=== PATIENT | male | born 1990 | race Caucasian/White ===

== ENCOUNTER 2018-03-11 23:05 | Emergency (ER) | payer OTHER, SELFPAY ==
[2018-03-11 23:05] VITALS: BP 157/92; PULSE 92; RESP 16; TEMP 36.6; O2SAT 97; BMI 17.9
--- NOTE | 2018-03-11 23:26 | ED.DCSUM_ITS ---
- ER Visit Summary Date of Service: 03/11/18 Chief Complaint: Electrical shock History of Present Illness: The patient is a 27 M with no primary care physician. He reports approximately 1 hour ago he was standing on wet carpet and picked up an extension cord with his left hand and felt a vibrating sensatio n from this. He denies any pain with it. He reports that he threw it down and was shocked for less than 5 seconds. States that it is not travel through his body. He did not have shoes on at the time. He did not fall from this. Patient reports the following this he feels as though his heart is racing. This has improved, but is still present. States that he feels nauseated as well. He is not vomited. He complains of a pressure to his forehead that is 2 out of 10 severity. Reports that he does have photophobia. He denies any bui. Physical Examination: Vitals: Stable. Afebrile. General: Well-nourished and well-developed. Head: Normocephalic atraumatic. Neck: Supple, no lymphadenopathy. No JVD. Nontender. Cardiovascular: Regular rate and rhythm. No murmurs. Respiratory: No respiratory distress. Clear to auscultation bilaterally. Abdominal: Soft, nontender, nondistended, normal bowel sounds. No guarding, rebound, or peritoneal signs. Back: Nontender. Extremities: Nontender, no edema. Skin: Normal color, no rash. Neurologic: Alert and oriented ?3. Cranial nerves II through XII are intact. Normal strength and sensation. Psych: Normal affect. Test Results: Patient refused an EKG or urinalysis. Emergency Department Course and Treatment: Patient was reassured. He is resting comfortably. He refused nausea pain medications. Treatment Plan: Patient will be discharged instructed to follow-up with Dr. Lanier as needed. Return to the emergency department for any worsening symptoms. Disposition: To home in improved and stable condition. Impression: 1. Electrical shock (120 V) left hand. This note was generated with [employer] dictation software. It may contain incorrect words, spelling, and punctuation that were not noted in review of the chart prior to signing ED Disposition - Plan for ED Patient: Disposition: Home or Assisted Living Chief Complaint: Upper Extremity Injury Instructions: ED Burn Electrical Referrals: Davey Lanier MD [NON-STAFF] - As Needed
[2018-03-11 23:29] VITALS: RESP 16
== END 2018-03-11 23:30 | disposition home or self-care (01) ==
LOC: ED 23:27
PROVIDERS: Emergency Provider Emergency Medicine
DX: T75.4XXA Electrocution, initial encounter (principal); W86.8XXA Exposure to other electric current, initial encounter; Y93.9 Activity, unspecified; Y92.89 Other specified places as the place of occurrence of the external cause; Y99.9 Unspecified external cause status
CPT/HCPCS: 99282

== ENCOUNTER → 2020-01-02 | Outpatient (CLI) | payer OTHER, SELFPAY ==
[2020-01-02 07:14] LABS: Absolute Lymphocyte Count 2.61 X10^3/uL (0.83-4.51); Absolute Neutrophil Count 2.4 X10^3/uL (2.0-7.7); Basophil# 0.01 X10^3/uL; Basophil% 0.2 % (0-1); Eosinophil# 0.07 X10^3/uL; Eosinophils% 1.2 % (0-5); Lymphocyte # 2.61 X10^3/ul (4.0); Lymphocyte % 46.3 % (19-41); Mean Corp Hgb Conc 34.8 g/dL (32-36); Mean Corpuscular Hgb 31.2 pg (27.0-32.0); Mean Corpuscular Volume 89.7 fL (80-94); Mean Platelet Vol. 10.5 fl (6.2-12.0); Monocyte# 0.57 X10^3/uL; Monocyte% 10.1 % (0-10); NRBC Flagged by Analyzer 0 % (0-5); Neutrophil # 2.38 X10^3/uL (2.7-7.7); Neutrophil % 42.2 % (47-70); Platelet Count 189 K/mm3 (150-450); RBC Distribution Width CV 12.3 % (11.6-14.6); RBC Distribution Width SD 40.4 fl (35.1-43.9); Red Blood Count 5.13 M/mm3 (4.6-6.2); White Blood Count 5.6 K/mm3 (4.4-11.0)
[2020-01-02 07:46] LABS: ALB/GLOB Ratio 1.3 RATIO (0.9-2.4); AST(SGOT) 17 U/L (15-37); Alanine Aminotransfer ALT/SGPT 19 U/L (16-61); Albumin, Serum 4.5 g/dL (3.2-5.0); Alkaline Phosphatase 90 U/L (45-117); Amylase 68 U/L (25-115); Anion Gap 5 (5-15); BUN 23 mg/dL (7-18); BUN/Creat Ratio 24.8 RATIO (10-20); Bilirubin, Direct 0.39 mg/dL (0.00-0.30); Chloride 106 mmol/L (98-107); Creatinine, Serum 0.93 mg/dL (0.70-1.30); EST Glomerular Filtration Rate 103 mL/min (>60); Est Glom Filt Rate - Afr Amer 124 mL/min (>60); Globulin 3.4 g/dL (2.2-4.2); Glucose 86 mg/dL (74-106); Lipase 142 U/L (73-393); Potassium 3.9 mmol/L (3.5-5.1); Protein, Total 7.9 g/dL (6.4-8.2); Sodium Level 140 mmol/L (136-145)
== END | disposition home or self-care (01) ==
PROVIDERS: PCP Family Medicine
DX: R10.9 Unspecified abdominal pain (principal); R19.7 Diarrhea, unspecified
CPT/HCPCS: 36415; 80053; 82150; 82248; 83690; 85025

== ENCOUNTER → 2020-01-07 | Outpatient (CLI) | payer OTHER, SELFPAY ==
[2020-01-07 19:39] LABS: Amylase 70 U/L (25-115); Bilirubin, Direct 0.31 mg/dL (0.00-0.30); Cholesterol 152 mg/dL (200); High Density Lipoprotein 62 mg/dL; Lipase 136 U/L (73-393); Triglycerides 60 mg/dL; Very Low Density Lipoprotein 12 mg/dL (5-40)
[2020-01-09 05:35] LABS: Haptoglobin 95 mg/dL (17-317)
== END | disposition home or self-care (01) ==
LOC: LAB 16:33
PROVIDERS: PCP Family Medicine
DX: Z00.00 Encounter for general adult medical examination without abnormal findings (principal); E80.6 Other disorders of bilirubin metabolism; R10.9 Unspecified abdominal pain
CPT/HCPCS: 36415; 80061; 82150; 82247; 82248; 83010; 83690

== ENCOUNTER 2020-01-09 16:27 | Emergency (ER) | payer OTHER, SELFPAY ==
[2020-01-09 16:28] VITALS: BP 149/106; PULSE 107; RESP 18; TEMP 36.5; O2SAT 97; BMI 17.2
--- NOTE | 2020-01-09 18:05 | CT_ITS ---
STUDY: CT ABDOMEN AND PELVIS WITH CONTRAST REASON FOR EXAM: Male, 29 years old. Elevated bilirubin. Weight loss. Abdominal pain for 6 months. RADIATION DOSAGE (If Supplied By Facility): CTDIvol = ( 7.49 ) mGy, DLP = ( 256.29 ) mGycm TECHNIQUE: Transaxial images were obtained from the dome of the diaphragm to the symphysis pubis without oral contrast. 100 CC ISOVUE 300 was administered. Sagittal and coronal images were reconstructed. Individualized dose optimization techniques were used for this CT. COMPARISON: None. FINDINGS: The visualized lung bases are unremarkable. The visualized portions of the heart are within normal limits. Normal liver. Normal gallbladder and extrahepatic biliary system. Normal spleen. Normal pancreas. Normal bilateral adrenal glands. Normal right kidney. Normal left kidney. Normal visualized stomach. Normal small intestine. Normal colon. The appendix is visualized and appears normal. Normal abdominal aorta. Normal inferior vena cava. Normal retroperitoneum. Normal urinary bladder. Normal prostate. There is no pelvic lymphadenopathy. No free air or free fluid is seen within the peritoneal cavity. Normal abdominal wall. Normal osseous structures. CT/Abdomen/Pelvis W IV Cont ONLY IMPRESSION: Normal enhanced CT of the abdomen and pelvis. Electronically Signed: Jaswinder Coronado DO at 18:37 EDT Tel [phone], Service support ,
--- NOTE | 2020-01-09 18:06 | ED.DCSUM_ITS ---
History of Present Illness Chief Complaint: Abd Pain Informant: Patient Onset: Month(s) Context: Gradual Onset Timing: Intermittent Narrative: Patient is a 29-year-old male with no significant past medical history presen ting with months of intermittent abdominal pain. Patient dates the pain is mostly in his right upper quadrant but sometimes on the left side. It seems be worse with food. He has been following with his primary care doctor, Dr. Davey Lanier, who is been doing outpatient blood work. His bilirubin was shown to be elevated so he was sent to the emergency room for further evaluation. Patient has has had night sweats and about a 20 pound weight loss over the past few months he has not been eating. States eating does tend to make his symptoms worse. Initially thought he might have IBS and he tried a bland diet with chicken rice with no change in his symptoms. Patient has any fevers. He has appointment to see GI on February 07, Dr. Sawyer. Patient has associated nausea or vomiting he does have diarrhea. He states his stool is often loose and orange in color. Denies any black or bloody stools. He notes he does have a maternal aunt with a history of Crohn's disease. No other complaints at this time. Patient currently does not have any abdominal pain. Past Medical History - Allergies and Home Meds Allergies/Adverse Reactions: Allergies No Known Allergies Allergy (Verified 01/09/20 16:27) Primary Care Physician: Davey Lanier MD [Primary Care Provider] - Past Medical History: None Surgical History: no surgical history, noncontributory Smoking Status: Never smoker Alcohol: None Drugs: None Review of Systems General: Reports: Sweats, Weight loss. Denies: Chills, Fever Eyes: Denies: Visual changes - bilaterally, Diplopia ENT: Denies: Rhinorrhea, Sore throat Cardiovascular: Denies: Chest pain, Palpitations Respiratory: Denies: Dyspnea, Cough, Dyspnea on exertion Gastrointestinal: Reports: Abdominal pain, Diarrhea. Denies: Nausea, Vomiting, Melena, Hematochezia Genitourinary: Denies: Dysuria, Hematuria, Frequency Musculoskeletal: Denies: Back pain, Extremity Pain Skin: Denies: Rash, Wounds Neurological: Denies: Headache, Weakness, Numbness Physical Exam Vital Signs/Narrative: Vital Signs Temp Pulse Resp BP Pulse Ox 01/09/20 16:28 97.7 F L 107 H 18 149/106 H 97 Inital Vital Signs reviewed: Yes General: Well nourished, Well developed, No Acute Distress, - - Thin male Head: Normocephalic, Atraumatic Eyes: Perrl, EOMI ENT: Moist mucous membranes, No rhinorrhea Neck: Supple, Nontender Cardiovascular: Regular rate, Regular rhythm, No murmurs Respiratory: No distress, CTA bilaterally, Chest nontender Abdomen: Soft, Nondistended, Normal bowel sounds, Tender, Iyer's sign. Negative for: Guarding, Rebound tenderness, Hepatomegaly, Splenomegaly, Mass Back: Nontender, Normal Inspection. Negative for: CVA tenderness Extremities: Nontender, No edema Skin: Normal color, No rash Neurological: Alert, Oriented x3, Cranial nerves II-XII grossly intact, Normal Strength, Normal Sensation Psychological: Normal affect, Normal Mood Diagnostic/Tx/Re-eval Clinical Impression(s) from Imaging Studies Abdomen/Pelvis CT 01/09/20 18:05 IMPRESSION: Normal enhanced CT of the abdomen and pelvis. Electronically Signed: Jaswinder Coronado DO at 18:37 EDT Tel [phone], Service support , Abdomen Ultrasound 01/09/20 18:40 IMPRESSION: Normal right upper quadrant ultrasound examination. Electronically Signed: Jaswinder Coronado DO at 19:42 EDT Tel [phone], Service support , Laboratory Data 01/09/20 01/09/20 01/09/20 18:40 18:40 18:50 WBC 3.4 L RBC 4.69 Hgb 14.8 Hct 42.6 MCV 90.8 MCH 31.6 MCHC 34.7 RDW Std Deviation 40.5 RDW Coeff of Cheryl 12.4 Plt Count 159 MPV 10.5 Immature Gran % (Auto) 0.300 Neut % (Auto) 58.1 Lymph % (Auto) 29.9 [place] % (Auto) 10.8 H Eos % (Auto) 0.6 Baso % (Auto) 0.3 Absolute Neuts (auto) 2.0 Absolute Lymphs (auto) 1.03 Nucleated RBC % 0 Sodium 138 Potassium 4.3 Chloride 107 Carbon Dioxide 29.0 Anion Gap 2 L BUN 14 Creatinine 0.88 Estim Creat Clear Calc 92.50 Est GFR (MDRD) Af Amer 132 Est GFR (MDRD) Non-Af 109 BUN/Creatinine Ratio 15.9 Glucose 80 Calcium 8.7 Total Bilirubin 2.90 H Direct Bilirubin 0.31 H AST 12 L ALT 15 L Alkaline Phosphatase 73 Total Protein 7.0 Albumin 4.0 Globulin 3.0 Lipase 96 Urine Color Urine Clarity Urine pH Ur Specific [place] Urine Protein Urine Glucose (UA) Urine Ketones Urine Occult Blood Urine Nitrite Urine Bilirubin Urine Urobilinogen Ur Leukocyte Esterase Urine RBC Urine WBC Ur Squamous Epith Cells Urine Bacteria Urine Mucus Monoscreen Negative 01/09/20 19:50 WBC RBC Hgb Hct MCV MCH MCHC RDW Std Deviation RDW Coeff of Cheryl Plt Count MPV Immature Gran % (Auto) Neut % (Auto) Lymph % (Auto) [place] % (Auto) Eos % (Auto) Baso % (Auto) Absolute Neuts (auto) Absolute Lymphs (auto) Nucleated RBC % Sodium Potassium Chloride Carbon Dioxide Anion Gap BUN Creatinine Estim Creat Clear Calc Est GFR (MDRD) Af Amer Est GFR (MDRD) Non-Af BUN/Creatinine Ratio Glucose Calcium Total Bilirubin Direct Bilirubin AST ALT Alkaline Phosphatase Total Protein Albumin Globulin Lipase Urine Color Yellow Urine Clarity Clear Urine pH 6.5 Ur Specific [place] 1.010 Urine Protein Negative Urine Glucose (UA) Normal Urine Ketones Negative Urine Occult Blood Negative Urine Nitrite Negative Urine Bilirubin Negative Urine Urobilinogen Normal Ur Leukocyte Esterase Negative Urine RBC 0 SEEN Urine WBC 0 SEEN Ur Squamous Epith Cells 0 SEEN Urine Bacteria 0 SEEN Urine Mucus 0 SEEN Monoscreen - Medical Decision Making Patient is evaluated for elevated bilirubin outpatient labs in conjunction with abdominal pain for the past few months. Sickle exam is quite benign and he does not have an obvious localized source of his pain.Patient's bilirubin was 2.81- week ago and then 3.42 days ago. It is rechecked today and is now 2.9. He is not having associated transaminitis. His other lab work is all grossly normal. I did check a Monospot which is negative. Patient does have a mild leukopenia with monocyte predominance. CT the abdomen pelvis does not show any acute abdominal process including a mass. Ultrasound of the gallbladder does not show any obstructive process or findings consistent with acute cholecystitis. His common bile duct is normal diameter. The exact cause of his symptoms is not clear however think he is stable to continue outpatient follow-up. He has an appointment to see GI in 1 month. I did discuss the case with his PCP who is agreeable with this plan. Patient is counseled on signs and symptoms requiring return to the emergency room. Patient verbalizes agreement and understand this plan. Patient discharged home in stable and improved condition. ED Disposition - Plan for ED Patient: Disposition: Home or Assisted Living Diagnosis: Abdominal pain of unknown cause, Elevated bilirubin Instructions: ED Unknown Causes of Abdominal Pain Male Referrals: Davey Lanier MD [Primary Care Provider] - Additional Instructions: Please continue to follow-up with your GI doctor as scheduled. Did not find any abnormalities today. Your bilirubin level is going back down. Please follow-up with your primary care doctor in the next week for repeat evaluation.
[2020-01-09] MEDS: 0.9% Normal Saline 1,000 ML 1000 ML IV (18:26)
--- NOTE | 2020-01-09 18:40 | US_ITS ---
STUDY: ABDOMINAL ULTRASOUND - RIGHT UPPER QUADRANT REASON FOR VISIT: Male, 29 years old. Right upper quadrant pain. TECHNIQUE: Ultrasound evaluation of the right upper quadrant was performed with real-time and static emanuel-scale imaging. TECHNICAL QUALITY: Adequate. COMPARISON: CT of the abdomen and pelvis, 01/09/2020. FINDINGS: Liver: The liver measures 12.9 cm. There is normal echogenicity of the liver. The bile ducts are within normal limits. There is hepatic color flow. The direction of portal flow is hepatopetal. There is no demonstrated mass lesion. Gallbladder: Normal distended gallbladder. The gallbladder wall measures 1.2 mm. There is a negative sonographic Iyer''s sign. There is no pericholecystic fluid. There are no gallstones. Common Bile Duct (C.B.D.): The common bile duct measures 3 mm. Pancreas: Normal size of the head, body and tail of the pancreas. There is normal echogenicity of the pancreas. There is no demonstrated pancreatic mass or cyst. Right Kidney: Normal size of the right kidney. The right kidney measures 11.0 cm. Normal renal cortex. The right cortex measures 1.7 cm. There is no demonstrated renal mass or cyst. There is no right hydronephrosis. US/Abdomen Limited IMPRESSION: Normal right upper quadrant ultrasound examination. Electronically Signed: Jaswinder Coronado DO at 19:42 EDT Tel [phone], Service support ,
[2020-01-09 18:52] VITALS: RESP 18
[2020-01-09 19:14] LABS: AST(SGOT) 12 U/L (15-37); Alanine Aminotransfer ALT/SGPT 15 U/L (16-61); Alkaline Phosphatase 73 U/L (45-117); Anion Gap 2 (5-15); BUN 14 mg/dL (7-18); BUN/Creat Ratio 15.9 RATIO (10-20); Bilirubin, Direct 0.31 mg/dL (0.00-0.30); Calcium,Total 8.7 mg/dL (8.5-10.1); Chloride 107 mmol/L (98-107); Creatinine, Serum 0.88 mg/dL (0.70-1.30); EST Glomerular Filtration Rate 109 mL/min (>60); Est Glom Filt Rate - Afr Amer 132 mL/min (>60); Glucose 80 mg/dL (74-106); Lipase 96 U/L (73-393); Potassium 4.3 mmol/L (3.5-5.1); Sodium Level 138 mmol/L (136-145)
[2020-01-09 19:14] LABS: Absolute Lymphocyte Count 1.03 X10^3/uL (0.83-4.51); Basophil# 0.01 X10^3/uL; Basophil% 0.3 % (0-1); Eosinophil# 0.02 X10^3/uL; Eosinophils% 0.6 % (0-5); Hematocrit 42.6 % (40-54); Hemoglobin 14.8 g/dL (13.0-16.5); Lymphocyte # 1.03 X10^3/ul (4.0); Lymphocyte % 29.9 % (19-41); Mean Corp Hgb Conc 34.7 g/dL (32-36); Mean Corpuscular Hgb 31.6 pg (27.0-32.0); Mean Corpuscular Volume 90.8 fL (80-94); Mean Platelet Vol. 10.5 fl (6.2-12.0); Monocyte# 0.37 X10^3/uL; Monocyte% 10.8 % (0-10); NRBC Flagged by Analyzer 0 % (0-5); Neutrophil % 58.1 % (47-70); Platelet Count 159 K/mm3 (150-450); RBC Distribution Width CV 12.4 % (11.6-14.6); RBC Distribution Width SD 40.5 fl (35.1-43.9); Red Blood Count 4.69 M/mm3 (4.6-6.2); White Blood Count 3.4 K/mm3 (4.4-11.0)
[2020-01-09 19:15] LABS: Internal QC Validated? YES +Cl - CLEAR BKGD; Monotest Negative (Negative)
[2020-01-09 19:53] VITALS: BP 132/87; PULSE 64; RESP 16; O2SAT 99
[2020-01-09 19:54] LABS: Bacteria 0 SEEN /hpf (None Seen); Mucous, Urine 0 SEEN /hpf (<or=2+); Red Blood Cells-Urine 0 SEEN /hpf (0-5); Squamous Epithelial Cells - UA 0 SEEN /hpf (0-5); White Blood Cells 0 SEEN /hpf (0-5)
[2020-01-09 20:26] LABS: Color, Urine Yellow (Yellow); Glucose, Dipstick Normal (Normal); Ketone-Dipstick Negative (Negative); Leukocyte Esterase-Dipstick Negative /ul (Negative); Nitrite-Dipstick Negative (Negative); Occult Blood-Urine Negative /ul (Negative); Protein-Dipstick Negative (Negative); Urine Bilirubin Dipstick Negative (Negative); Urine Clarity Clear (Clear); Urine Urobilinogen Normal (Normal); Urine pH 6.5 (5.0 - 8.0)
== END 2020-01-09 20:42 | disposition home or self-care (01) ==
PROVIDERS: Emergency Provider Emergency Medicine; PCP Family Medicine
DX: R10.11 Right upper quadrant pain (principal); R79.89 Other specified abnormal findings of blood chemistry
CPT/HCPCS: 74177; 76705; 80048; 80076; 81001; 83690; 85025; 86308; 96360; 99284; J7030; Q9967; A4216

== ENCOUNTER → 2025-03-13 | Outpatient (CLI) | payer OTHER, SELFPAY ==
--- OUTSIDE RECORDS SUMMARY | 2025-03-13 11:06 | XMS RPT_ITS | CCD ---
Author Organization [place] [facility] URGENT CARE TECHNICIAN [facility] Results Test Name Value Interpretation Reference Range Facil ity Abdomen Limitedon 01-09-2020 Abdomen Limited [facility] Imaging Services [address] [place] [address] Abdomen Limited MR#: [id number] Acct: [id number] Name: TROYUVALDO ANN Rep #: [id number] : 1990 M 29 From: Jaswinder Coronado DO PCP: Dr. Davey Lanier MD Status: REG ER Study: Abdomen Limited Date of Exam: 01/09/20 Exam# [id number] Ordering Dr: Ivy Lazcnao DO STUDY: ABDOMINAL ULTRASOUND - RIGHT UPPER QUADRANT REASON FOR VISIT: Male, 29 years old. Right upper quadrant pain. TECHNIQUE: Ultrasound evaluation of the right upper quadrant was performed with real-time and static emanuel-scale imaging. TECHNICAL QUALITY: Adequate. COMPARISON: CT of the abdomen and pelvis, 01/09/2020. FINDINGS: Liver: The liver measures 12.9 cm. There is normal echogenicity of the liver. The bile ducts are within normal limits. There is hepatic color flow. The direction of portal flow is hepatopetal. There is no demonstrated mass lesion. Gallbladder: Normal distended gallbladder. The gallbladder wall measures 1.2 mm. There is a negative sonographic Iyer''s sign. There is no pericholecystic fluid. There are no gallstones. Common Bile Duct (C.B.D.): The common bile duct measures 3 mm. Pancreas: Normal size of the head, body and tail of the pancreas. There is normal echogenicity of the pancreas. There is no demonstrated pancreatic mass or cyst. Right Kidney: Normal size of the right kidney. The right kidney measures 11.0 cm. Normal renal cortex. The right cortex measures 1.7 cm. There is no demonstrated renal mass or cyst. There is no right hydronephrosis. US/Abdomen Limited IMPRESSION: Normal right upper quadrant ultrasound examination. Electronically Signed: Jaswinder Coronado DO at 19:42 EDT Tel [phone], Service support , CC: Dr. Ivy Lazcano DO; Dr. Davey Lanier MD [employer]: Signed Normal [facility] Abdomen/Pelvis W IV Cont ONL Yo 01-09-2020 Abdomen/Pelvis W IV Cont ONLY [facility] Imaging Services [address] [place] [address] Abdomen/Pelvis W IV Cont ONLY MR#: [id number] Acct: [id number] Name: UVALDO SIMMONS Rep #: [id number] : 1990 M 29 From: aJswinder Coronado DO PCP: Dr. Davey Lanier MD Status: REG ER Study: Abdomen/Pelvis W IV Cont ONLY Date of Exam: Exam# [id number] Ordering Dr: Ivy Lazcano DO STUDY: CT ABDOMEN AND PELVIS WITH CONTRAST REASON FOR EXAM: Male, 29 years old. Elevated bilirubin. Weight loss. Abdominal pain for 6 months. RADIATION DOSAGE (If Supplied By Facility): CTDIvol = ( 7.49 ) mGy, DLP = ( 256.29 ) mGycm TECHNIQUE: Transaxial images were obtained from the dome of the diaphragm to the symphysis pubis without oral contrast. 100 CC ISOVUE 300 was administered. Sagittal and coronal images were reconstructed. Individualized dose optimization techniques were used for this CT. COMPARISON: None. FINDINGS: The visualized lung bases are unremarkable. The visualized portions of the heart are within normal limits. Normal liver. Normal gallbladder and extrahepatic biliary system. Normal spleen. Normal pancreas. Normal bilateral adrenal glands. Normal right kidney. Normal left kidney. Normal visualized stomach. Normal small intestine. Normal colon. The appendix is visualized and appears normal. Normal abdominal aorta. Normal inferior vena cava. Normal retroperitoneum. Normal urinary bladder. Normal prostate. There is no pelvic lymphadenopathy. No free air or free fluid is seen within the peritoneal cavity. Normal abdominal wall. Normal osseous structures. CT/Abdomen/Pelvis W IV Cont ONLY IMPRESSION: Normal enhanced CT of the abdomen and pelvis. Electronically Signed: Jaswinder Coronado DO at 18:37 EDT Tel [phone], Service support , CC: Dr. Ivy Lazcano DO; Dr. Davey Lanier MD [place] [employer]ulator: Signed Normal [facility] Basic Metabolic Profile (BMP )on 01-09-2020 Calcium [Mass/Vol] 8.7 mg/dL Normal 8.5-10.1 [facility] Comment on above: Performed By: #### L 500.4050, L501.2400, L501.2450, L501.4700 #### [facility] [address] [place], [address] Chloride [Moles/Vol] 107 mmol/L Normal 98-107 [facility] Comment on above: Performed By: #### L 500.4050, L501.2400, L501.2450, L501.4700 #### [facility] [address] [place], [address] CO2 [Moles/Vol] 29.0 mmol/L Normal 21.0-32.0 [facility] Comment on above: Performed By: #### L 500.4050, L501.2400, L501.2450, L501.4700 #### [facility] [address] [place], [address] Creatinine [Mass/Vol] 0.88 mg/dL Normal 0.70-1.30 [facility] Comment on above: Result Comment: The validity of the calculated GFR AND GFRAA in patients over 70 years has not been determined. Clinical correlation is essential. Performed By: #### L 500.4050, L501.2400, L501.2450, L501.4700 #### [facility] [address] [place], [address] EST GFR - AA 132 mL/min Normal >60 [facility] Comment on above: Result Comment: Afri can Egyptian GFR Calc Performed By: #### L 500.4050, L501.2400, L501.2450, L501.4700 #### [facility] [address] [place], [address] Estimated CRCL 92.50 ml/min Normal [facility] Comment on above: Performed By: #### L 500.4050, L501.2400, L501.2450, L501.4700 #### [facility] [address] [place], [address] GAP 2 Low 5-15 [facility] Comment on above: Performed By: #### L 500.4050, L501.2400, L501.2450, L501.4700 #### [facility] [address] [place], [address] GFR/1.73 sq M predicted among non-blacks MDRD (S/P/Bld) [Vol rate/Area] 109 mL/min/{1.73_m2} Normal >60 [facility] Comment on above: Result Comment: Non- GFR Calc Performed By: #### L 500.4050, L501.2400, L501.2450, L501.4700 #### [facility] [address] [place], [address] Glucose [Mass/Vol] 80 mg/dL Normal 74-106 [facility] Comment on above: Result Comment: Oscar hilliard note revised GLUCOSE reference range effective 2017. Performed By: #### L 500.4050, L501.2400, L501.2450, L501.4700 #### [facility] [address] [place], [address] Potassium [Moles/Vol] 4.3 mmol/L Normal 3.5-5.1 [facility] Comment on above: Performed By: #### L 500.4050, L501.2400, L501.2450, L501.4700 #### [facility] [address] [place], [address] Sodium [Moles/Vol] 138 mmol/L Normal 136-145 [facility] Comment on above: Performed By: #### L 500.4050, L501.2400, L501.2450, L501.4700 #### [facility] [address] [place], [address] Urea nitrogen [Mass/Vol] 15.9 RATIO Normal 10-20 [facility] Comment on above: Performed By: #### L 500.4050, L501.2400, L501.2450, L501.4700 #### [facility] [address] [place], [address] Urea nitrogen [Mass/Vol] 14 mg/dL Normal 7-18 [facility] Comment on above: Performed By: #### L 500.4050, L501.2400, L501.2450, L501.4700 #### [facility] [address] [place], [address] CBC W/Diff, Automatedon 09-04 30-2019 Absolute Neut 2.0 X10 3/uL Normal 2.0-7.7 [facility] Comment on above: Performed By: #### L 500.4050, L501.2400, L501.2450, L501.4700 #### [facility] [address] [place], [address] Basophils/100 WBC (Bld) 0.3 % Normal 0-1 [facility] Comment on above: Performed By: #### L 500.4050, L501.2400, L501.2450, L501.4700 #### [facility] [address] [place], [address] Eosinophils/100 WBC (Bld) 0.6 % Normal 0-5 [facility] Comment on above: Performed By: #### L 500.4050, L501.2400, L501.2450, L501.4700 #### [facility] [address] [place], [address] Erythrocyte distribution width (RBC) [Ratio] 12.4 % Normal 11.6-14.6 [facility] Comment on above: Performed By: #### L 500.4050, L501.2400, L501.2450, L501.4700 #### [facility] [address] [place], [address] Hematocrit (Bld) [Volume fraction] 42.6 % Normal 40-54 [facility] Comment on above: Performed By: #### L 500.4050, L501.2400, L501.2450, L501.4700 #### [facility] [address] [place], [address] Hemoglobin (Bld) [Mass/Vol] 14.8 g/dL Normal 13.0-16.5 [facility] Comment on above: Performed By: #### L 500.4050, L501.2400, L501.2450, L501.4700 #### [facility] [address] [place], [address] IM GRAN % 0.300 % Normal 0.0-0.9 [facility] Comment on above: Result Comment: IG% - Immature Granulocytes (promyelocytes, myelocytes and metamyelocytes) > 1% indicates that a LEFT SHIFT is Present. Performed By: #### L 500.4050, L501.2400, L501.2450, L501.4700 #### [facility] [address] [place], [address] Lymphocytes (Bld) [#/Vol] 1.03 X10 3/uL Normal 0.83-4.51 [facility] Comment on above: Performed By: #### L 500.4050, L501.2400, L501.2450, L501.4700 #### [facility] [address] [place], [address] Lymphocytes/100 WBC (Bld) 29.9 % Normal 19-41 [facility] Comment on above: Performed By: #### L 500.4050, L501.2400, L501.2450, L501.4700 #### [facility] [address] [place], [address] MCH (RBC) [Entitic mass] 31.6 pg Normal 27.0-32.0 [facility] Comment on above: Performed By: #### L 500.4050, L501.2400, L501.2450, L501.4700 #### [facility] [address] [place], [address] MCHC (RBC) [Mass/Vol] 34.7 g/dL Normal 32-36 [facility] Comment on above: Performed By: #### L 500.4050, L501.2400, L501.2450, L501.4700 #### [facility] [address] [place], [address] MCV (RBC) [Entitic vol] 90.8 fL Normal 80-94 [facility] Comment on above: Performed By: #### L 500.4050, L501.2400, L501.2450, L501.4700 #### [facility] [address] [place], [address] Monocytes/100 WBC (Bld) 10.8 % High 0-10 [facility] Comment on above: Performed By: #### L 500.4050, L501.2400, L501.2450, L501.4700 #### [facility] [address] [place], [address] Neutrophils/100 WBC (Bld) 58.1 % Normal 47-70 [facility] Comment on above: Performed By: #### L 500.4050, L501.2400, L501.2450, L501.4700 #### [facility] [address] [place], [address] NRBC, FLAGGED 0 % Normal 0-5 [facility] Comment on above: Performed By: #### L 500.4050, L501.2400, L501.2450, L501.4700 #### [facility] [address] [place], [address] Platelet mean volume (Bld) [Entitic vol] 10.5 fL Normal 6.2-12.0 [facility] Comment on above: Performed By: #### L 500.4050, L501.2400, L501.2450, L501.4700 #### [facility] [address] [place], [address] Platelets (Bld) [#/Vol] 159 10*3/uL Normal 150-450 [facility] Comment on above: Performed By: #### L 500.4050, L501.2400, L501.2450, L501.4700 #### [facility] [address] [place], [address] RBC (Bld) [#/Vol] 4.69 M/mm3 Normal 4.6-6.2 [facility] Comment on above: Performed By: #### L 500.4050, L501.2400, L501.2450, L501.4700 #### [facility] [address] [place], [address] RDW SD 40.5 fl Normal 35.1-43.9 [facility] Comment on above: Performed By: #### L 500.4050, L501.2400, L501.2450, L501.4700 #### [facility] [address] [place], [address] WBC (Bld) [#/Vol] 3.4 10*3/uL Low 4.4-11.0 [facility] Comment on above: Performed By: #### L 500.4050, L501.2400, L501.2450, L501.4700 #### [facility] [address] [place], [address] Emergency Department Summary on 01-09-2020 Emergency Department Summary [facility] Medical Records Department [address] [facility] [place] [address] Emergency Department Summary 01/09/20 MR#: [id number] Acct: [id number] Name: UVALDO SIMMONS Rep #: [id number] : 1990 29 From: Ivy Lazcano DO PCP: Dr. Davey Lanier MD Status:DEP ER History of Present Illness Chief Complaint: Abd Pain Informant: Patient Onset: Month(s) Context: Gradual Onset Timing: Intermittent Narrative: Patient is a 29-year-old male with no significant past medical history presenting with months of intermittent abdominal pain. Patient dates the pain is mostly in his right upper quadrant but sometimes on the left side. It seems be worse with food. He has been following with his primary care doctor, Dr. Davey Lanier, who is been doing outpatient blood work. His bilirubin was shown to be elevated so he was sent to the emergency room for further evaluation. Patient has has had night sweats and about a 20 pound weight loss over the past few months he has not been eating. States eating does tend to make his symptoms worse. Initially thought he might have IBS and he tried a bland diet with chicken rice with no change in his symptoms. Patient has any fevers. He has appointment to see GI on February 07, Dr. Sawyer. Patient has associated nausea or vomiting he does have diarrhea. He states his stool is often loose and orange in color. Denies any black or bloody stools. He notes he does have a maternal aunt with a history of Crohn's disease. No other complaints at this time. Patient currently does not have any abdominal pain. Past Medical History - Allergies and Home Meds Allergies/Adverse Reactions: Allergies No Known Allergies Allergy (Verified 01/09/20 16:27) Primary Care Physician: Davey Lanier MD [Primary Care Provider] - Past Medical History: None Surgical History: no surgical history, noncontributory Smoking Status: Never smoker Alcohol: None Drugs: None Review of Systems General: Reports: Sweats, Weight loss. Denies: Chills, Fever Eyes: Denies: Visual changes - bilaterally, Diplopia ENT: Denies: Rhinorrhea, Sore throat Cardiovascular: Denies: Chest pain, Palpitations Respiratory: Denies: Dyspnea, Cough, Dyspnea on exertion Gastrointestinal: Reports: Abdominal pain, Diarrhea. Denies: Nausea, Vomiting, Melena, Hematochezia Genitourinary: Denies: Dysuria, Hematuria, Frequency Musculoskeletal: Denies: Back pain, Extremity Pain Skin: Denies: Rash, Wounds Neurological: Denies: Headache, Weakness, Numbness Physical Exam Vital Signs/Narrative: Vital Signs Temp Pulse Resp BP Pulse Ox 01/09/20 16:28 97.7 F L 107 H 18 149/106 H 97 Inital Vital Signs reviewed: Yes General: Well nourished, Well developed, No Acute Distress, - - Thin male Head: Normocephalic, Atraumatic Eyes: Perrl, EOMI ENT: Moist mucous membranes, No rhinorrhea Neck: Supple, Nontender Cardiovascular: Regular rate, Regular rhythm, No murmurs Respiratory: No distress, CTA bilaterally, Chest nontender Abdomen: Soft, Nondistended, Normal bowel sounds, Tender, Iyer's sign. Negative for: Guarding, Rebound tenderness, Hepatomegaly, Splenomegaly, Mass Back: Nontender, Normal Inspection. Negative for: CVA tenderness Extremities: Nontender, No edema Skin: Normal color, No rash Neurological: Alert, Oriented x3, Cranial nerves II-XII grossly intact, Normal Strength, Normal Sensation Psychological: Normal affect, Normal Mood Diagnostic/Tx/Re-eval Clinical Impression(s) from Imaging Studies Abdomen/Pelvis CT 01/09/20 18:05 IMPRESSION: Normal enhanced CT of the abdomen and pelvis. Electronically Signed: Jaswinder Coronado DO at 18:37 EDT Tel [phone], Service support , Abdomen Ultrasound 01/09/20 18:40 IMPRESSION: Normal right upper quadrant ultrasound examination. Electronically Signed: Jaswinder Coronado at 19:42 EDT Tel [phone], Service support , Laboratory Data 01/09/20 01/09/20 01/09/20 18:40 18:40 18:50 WBC 3.4 L RBC 4.69 Hgb 14.8 Hct 42.6 MCV 90.8 MCH 31.6 MCHC 34.7 RDW Std Deviation 40.5 RDW Coeff of Cheryl 12.4 Plt Count 159 MPV 10.5 Immature Gran % (Auto) 0.300 Neut % (Auto) 58.1 Lymph % (Auto) 29.9 [place] % (Auto) 10.8 H Eos % (Auto) 0.6 Baso % (Auto) 0.3 Absolute Neuts (auto) 2.0 Absolute Lymphs (auto) 1.03 Nucleated RBC % 0 Sodium 138 Potassium 4.3 Chloride 107 Carbon Dioxide 29.0 Anion Gap 2 L BUN 14 Creatinine 0.88 Estim Creat Clear Calc 92.50 Est GFR (MDRD) Af Amer 132 Est GFR (MDRD) Non-Af 109 BUN/Creatinine Ratio 15.9 Glucose 80 Calcium 8.7 Total Bilirubin 2.90 H Direct Bilirubin 0.31 H AST 12 L ALT 15 L Alkaline Phosphatase 73 Total Protein 7.0 Albumin 4.0 Globulin 3.0 Lipase 96 Urine Color Urine Clarity Urine pH Ur Specific Merritt Urine Protein Urine Glucose (UA) Urine Ketones Urine Occult Blood Urine Nitrite Urine Bilirubin Urine Urobilinogen Ur Leukocyte Esterase Urine RBC Urine WBC Ur Squamous Epith Cells Urine Bacteria Urine Mucus Monoscreen Negative 01/09/20 19:50 WBC RBC Hgb Hct MCV MCH MCHC RDW Std Deviation RDW Coeff of Cheryl Plt Count MPV Immature Gran % (Auto) Neut % (Auto) Lymph % (Auto) [place] % (Auto) Eos % (Auto) Baso % (Auto) Absolute Neuts (auto) Absolute Lymphs (auto) Nucleated RBC % Sodium Potassium Chloride Carbon Dioxide Anion Gap BUN Creatinine Estim Creat Clear Calc Est GFR (MDRD) Af Amer Est GFR (MDRD) Non-Af BUN/Creatinine Ratio Glucose Calcium Total Bilirubin Direct Bilirubin AST ALT Alkaline Phosphatase Total Protein Albumin Globulin Lipase Urine Color Yellow Urine Clarity Clear Urine pH 6.5 Ur Specific Merritt 1.010 Urine Protein Negative Urine Glucose (UA) Normal Urine Ketones Negative Urine Occult Blood Negative Urine Nitrite Negative Urine Bilirubin Negative Urine Urobilinogen Normal Ur Leukocyte Esterase Negative Urine RBC 0 SEEN Urine WBC 0 SEEN Ur Squamous Epith Cells 0 SEEN Urine Bacteria 0 SEEN Urine Mucus 0 SEEN Monoscreen - Medical Decision Making Patient is evaluated for elevated bilirubin outpatient labs in conjunction with abdominal pain for the past few months. Sickle exam is quite benign and he does not have an obvious localized source of his pain.Patient's bilirubin was 2.81-week ago and then 3.42 days ago. It is rechecked today and is now 2.9. He is not having associated transaminitis. His other lab work is all grossly normal. I did check a Monospot which is negative. Patient does have a mild leukopenia with monocyte predominance. CT the abdomen pelvis does not show any acute abdominal process including a mass. Ultrasound of the gallbladder does not show any obstructive process or findings consistent with acute cholecystitis. His common bile duct is normal diameter. The exact cause of his symptoms is not clear however think he is stable to continue outpatient follow-up. He has an appointment to see GI in 1 month. I did discuss the case with his PCP who is agreeable with this plan. Patient is counseled on signs and symptoms requiring return to the emergency room. Patient verbalizes agreement and understand this plan. Patient discharged home in stable and improved condition. ED Disposition - Plan for ED Patient: Disposition: Home or Assisted Living Diagnosis: Abdominal pain of unknown cause, Elevated bilirubin Instructions: ED Unknown Causes of Abdominal Pain Male Referrals: Davey Lanier MD [Primary Care Provider] - Additional Instructions: Please continue to follow-up with your GI doctor as scheduled. Did not find any abnormalities today. Your bilirubin level is going back down. Please follow-up with your primary care doctor in the next week for repeat evaluation. What to do if you have Problems For any increased pain, shortness of breath, bleeding, nausea or vomiting, chest pain, or any unexpected problems, contact your Primary Care Provider. Call [facility] ([phone]) or report to the closest Emergency Room. Call 911 if necessary. 01/10/20 0108 Date Ivymaira Lazcano DO Justin Signature (If Indicated): Date _ CC: Dr. Davey Lanier MD Normal [facility] Haptoglobinon 01-09-2020 HAPTOGLOB 1628 95 mg/dL Normal 17-317 [facility] Comment on above: Result Comment: Perf ormed at: - [facility] [id number] Meal Attendant: Pasha Sweet PhD, Phone: [phone] Performed By: #### L 500.4050, L501.2400, L501.2450, L501.4700 #### [facility] [address] [place], [address] Lipaseon 01-09-2020 Lipase [Catalytic activity/Vol] 96 U/L Normal 73-393 [facility] Comment on above: Performed By: #### L 500.4050, L501.2400, L501.2450, L501.4700 #### [facility] [address] [place], [place], [id number] Liver Profileon 01-09-2020 Albumin [Mass/Vol] 4.0 g/dL Normal 3.2-5.0 [facility] Comment on above: Performed By: #### L 500.4050, L501.2400, L501.2450, L501.4700 #### [facility] [address] [place], [address] ALK P 73 U/L Normal 45-117 [facility] Comment on above: Performed By: #### L 500.4050, L501.2400, L501.2450, L501.4700 #### [facility] [address] [place], [address] ALT [Catalytic activity/Vol] 15 U/L Low 16-61 [facility] Comment on above: Performed By: #### L 500.4050, L501.2400, L501.2450, L501.4700 #### [facility] [address] [place], [address] AST [Catalytic activity/Vol] 12 U/L Low 15-37 [facility] Comment on above: Performed By: #### L 500.4050, L501.2400, L501.2450, L501.4700 #### [facility] [address] [place], [address] Bilirubin [Mass/Vol] 2.90 mg/dL High 0.20-1.00 [facility] Comment on above: Result Comment: For patients on eltrombopag therapy, use of Dimension [place] TBIL is not recommended. Performed By: #### L 500.4050, L501.2400, L501.2450, L501.4700 #### [facility] [address] [place], [address] Bilirubin.direct [Mass/Vol] 0.31 mg/dL High 0.00-0.30 [facility] Comment on above: Performed By: #### L 500.4050, L501.2400, L501.2450, L501.4700 #### [facility] [address] [place], [address] Globulin (S) [Mass/Vol] 3.0 g/dL Normal 2.2-4.2 [facility] Comment on above: Performed By: #### L 500.4050, L501.2400, L501.2450, L501.4700 #### [facility] [address] [place], [address] T PROT 7.0 g/dL Normal 6.4-8.2 [facility] Comment on above: Performed By: #### L 500.4050, L501.2400, L501.2450, L501.4700 #### [facility] [address] [place], [address] Monoteston 01-09-2020 Monocytes (Bld) [#/Vol] Negative Normal Negative [facility] Comment on above: Performed By: #### L 500.4050, L501.2400, L501.2450, L501.4700 #### [facility] [address] [place], [address] Urinalysis, Completeon 01-08 Bacteria LM.HPF (Urine sed) [#/Area] 0 SEEN Normal None Seen [facility] Comment on above: Order Comment: How w as Urine Obtained? ATHLETIC TEAM PHYSICIAN TO SPECIFY Performed By: #### L 500.4050, L501.2400, L501.2450, L501.4700 #### [facility] [address], [address] MUCUS, URINE 0 SEEN Normal [facility] Comment on above: Order Comment: How w as Urine Obtained? ATHLETIC TEAM PHYSICIAN TO SPECIFY Performed By: #### L 500.4050, L501.2400, L501.2450, L501.4700 #### [facility] [address] [place], [address] RBC (U) [#/Vol] 0 SEEN Normal 0-5 [facility] Comment on above: Order Comment: How w as Urine Obtained? ATHLETIC TEAM PHYSICIAN TO SPECIFY Performed By: #### L 500.4050, L501.2400, L501.2450, L501.4700 #### [facility] [address] [place], [address] SQUAM EPI 0 SEEN Normal 0-5 [facility] Comment on above: Order Comment: How w as Urine Obtained? ATHLETIC TEAM PHYSICIAN TO SPECIFY Performed By: #### L 500.4050, L501.2400, L501.2450, L501.4700 #### [facility] [address] [place], [address] WBC (Bld) [#/Vol] 0 SEEN Normal 0-5 [facility] Comment on above: Order Comment: How w as Urine Obtained? ATHLETIC TEAM PHYSICIAN TO SPECIFY Performed By: #### L 500.4050, L501.2400, L501.2450, L501.4700 #### [facility] [address] [place], [address] BILIRUBIN URINE Negative Normal Negative [facility] Comment on above: Order Comment: How w as Urine Obtained? ATHLETIC TEAM PHYSICIAN TO SPECIFY Performed By: #### L 500.4050, L501.2400, L501.2450, L501.4700 #### [facility] [address] [place], [address] Clarity (U) Clear Normal Clear [facility] Comment on above: Order Comment: How w as Urine Obtained? ATHLETIC TEAM PHYSICIAN TO SPECIFY Performed By: #### L 500.4050, L501.2400, L501.2450, L501.4700 #### [facility] [address] [place], [address] Color (U) Yellow Normal Yellow [facility] Comment on above: Order Comment: How w as Urine Obtained? ATHLETIC TEAM PHYSICIAN TO SPECIFY Performed By: #### L 500.4050, L501.2400, L501.2450, L501.4700 #### [facility] [address] [place], [address] GLUCOSE, UR Normal Normal Normal [facility] Comment on above: Order Comment: How w as Urine Obtained? ATHLETIC TEAM PHYSICIAN TO SPECIFY Performed By: #### L 500.4050, L501.2400, L501.2450, L501.4700 #### [facility] [address] [place], [address] KETONE UR Negative Normal Negative [facility] Comment on above: Order Comment: How w as Urine Obtained? ATHLETIC TEAM PHYSICIAN TO SPECIFY Performed By: #### L 500.4050, L501.2400, L501.2450, L501.4700 #### [facility] [address] [place], [address] LEUK ESTERASE Negative Normal Negative [facility] Comment on above: Order Comment: How w as Urine Obtained? ATHLETIC TEAM PHYSICIAN TO SPECIFY Performed By: #### L 500.4050, L501.2400, L501.2450, L501.4700 #### [facility] [address] [place], [address] NITRITE UR Negative Normal Negative [facility] Comment on above: Order Comment: How w as Urine Obtained? ATHLETIC TEAM PHYSICIAN TO SPECIFY Performed By: #### L 500.4050, L501.2400, L501.2450, L501.4700 #### [facility] [address] [place], [address] OCCULT BLOOD-UR Negative Normal Negative [facility] Comment on above: Order Comment: How w as Urine Obtained? ATHLETIC TEAM PHYSICIAN TO SPECIFY Performed By: #### L 500.4050, L501.2400, L501.2450, L501.4700 #### [facility] [address] [place], [address] pH UR 6.5 Normal 5.0 - 8.0 [facility] Comment on above: Order Comment: How w as Urine Obtained? ATHLETIC TEAM PHYSICIAN TO SPECIFY Performed By: #### L 500.4050, L501.2400, L501.2450, L501.4700 #### [facility] [address] [place], [address] PROT DIPSTX Negative Normal Negative [facility] Comment on above: Order Comment: How w as Urine Obtained? ATHLETIC TEAM PHYSICIAN TO SPECIFY Performed By: #### L 500.4050, L501.2400, L501.2450, L501.4700 #### [facility] [address] [place], [address] SP.GR. DIPSTX 1.010 Normal 1.002-1.030 [facility] Comment on above: Order Comment: How w as Urine Obtained? ATHLETIC TEAM PHYSICIAN TO SPECIFY Performed By: #### L 500.4050, L501.2400, L501.2450, L501.4700 #### [facility] [address] [place], [address] UROBILI Normal Normal Normal [facility] Comment on above: Order Comment: How w as Urine Obtained? ATHLETIC TEAM PHYSICIAN TO SPECIFY Performed By: #### L 500.4050, L501.2400, L501.2450, L501.4700 #### [facility] [address] [place], [address] Amylaseon 01-07-2020 ROXANE 70 U/L Normal 25-115 [facility] Comment on above: Performed By: #### L 500.4100, L501.2400, L501.2450, L501.4600, L501.4700 #### [facility] [address] [place], [address] Bilirubin, Directon 01-07-20 20 Bilirubin.direct [Mass/Vol] 0.31 mg/dL High 0.00-0.30 [facility] Comment on above: Performed By: #### L 500.4100, L501.2400, L501.2450, L501.4600, L501.4700 #### [facility] [address] [place], [address] Lipaseon 01-07-2020 Lipase [Catalytic activity/Vol] 136 U/L Normal 73-393 [facility] Comment on above: Performed By: #### L 500.4100, L501.2400, L501.2450, L501.4600, L501.4700 #### [facility] [address] [place], [address] Lipid Profileon 01-07-2020 Cholesterol [Mass/Vol] 152 mg/dL Normal 200 [facility] Comment on above: Result Comment: <200 mg/dL Desirable 200-240 mg/dL Borderline >240 mg/dL High Risk Performed By: #### L 500.4100, L501.2400, L501.2450, L501.4600, L501.4700 #### [facility] [address] [place], [address] Cholesterol in HDL [Mass/Vol] 62 mg/dL Normal [facility] Comment on above: Result Comment: The drugs N-Acetylcysteine and Metamizole may falsely depress this assay. Reference Range HDL <40 mg/dL Low HDL Cholesterol HDL >or= 60 mg/dL High HDL Cholesterol Performed By: #### L 500.4100, L501.2400, L501.2450, L501.4600, L501.4700 #### [facility] [address] [place], [address] Cholesterol in LDL [Mass/Vol] 78 mg/dL Normal 0-130 [facility] Comment on above: Performed By: #### L 500.4100, L501.2400, L501.2450, L501.4600, L501.4700 #### [facility] [address] [place], [address] Cholesterol in VLDL [Mass/Vol] 12 mg/dL Normal 5-40 [facility] Comment on above: Performed By: #### L 500.4100, L501.2400, L501.2450, L501.4600, L501.4700 #### [facility] [address] [place], [address] Triglyceride [Mass/Vol] 60 mg/dL Normal [facility] Comment on above: Result Comment: The drugs N-Acetylcysteine and Metamizole may falsely depress this assay. Serum Triglycerides Reference Interval Normal <150 mg/dL Borderline high 150 - 199 mg/dL High 200 - 499 mg/dL Very High > or = 500 mg/dL Performed By: #### L 500.4100, L501.2400, L501.2450, L501.4600, L501.4700 #### [facility] [address] [place], [address] Total Bilirubinon 01-07-2020 Bilirubin Ql (U) 3.40 mg/dL High 0.20-1.00 [facility] Comment on above: Result Comment: For patients on eltrombopag therapy, use of Dimension [place] TBIL is not recommended. Performed By: #### L 500.4100, L501.2400, L501.2450, L501.4600, L501.4700 #### [facility] [address] [place], [address] Amylaseon 01-02-2020 ROXANE 68 U/L Normal 25-115 [facility] Comment on above: Performed By: #### L 500.4050, L501.2400, L501.2450, L501.4700 #### [facility] [address] [place], [address] Bilirubin, Directon 01-02-20 20 Bilirubin.direct [Mass/Vol] 0.39 mg/dL High 0.00-0.30 [facility] Comment on above: Performed By: #### L 500.4050, L501.2400, L501.2450, L501.4700 #### [facility] [address] [place], [address] CBC W/Diff, Automatedon Absolute Neut 2.4 X10 3/uL Normal 2.0-7.7 [facility] Comment on above: Performed By: #### L 100.0100 #### [facility] [address] [place], [address] Basophils/100 WBC (Bld) 0.2 % Normal 0-1 [facility] Comment on above: Performed By: #### L 100.0100 #### [facility] [address] [place], [address] Eosinophils/100 WBC (Bld) 1.2 % Normal 0-5 [facility] Comment on above: Performed By: #### L 100.0100 #### [facility] [address] [place], [address] Erythrocyte distribution width (RBC) [Ratio] 12.3 % Normal 11.6-14.6 [facility] Comment on above: Performed By: #### L 100.0100 #### [facility] [address] [place], [address] Hematocrit (Bld) [Volume fraction] 46.0 % Normal 40-54 [facility] Comment on above: Performed By: #### L 100.0100 #### [facility] [address] [place], [address] Hemoglobin (Bld) [Mass/Vol] 16.0 g/dL Normal 13.0-16.5 [facility] Comment on above: Performed By: #### L 100.0100 #### [facility] [address] [place], [address] IM GRAN % 0.000 % Normal 0.0-0.9 [facility] Comment on above: Result Comment: IG% - Immature Granulocytes (promyelocytes, myelocytes and metamyelocytes) > 1% indicates that a LEFT SHIFT is Present. Performed By: #### L 100.0100 #### [facility] [address] [place], [address] Lymphocytes (Bld) [#/Vol] 2.61 X10 3/uL Normal 0.83-4.51 [facility] Comment on above: Performed By: #### L 100.0100 #### [facility] [address] [place], [address] Lymphocytes/100 WBC (Bld) 46.3 % High 19-41 [facility] Comment on above: Performed By: #### L 100.0100 #### [facility] [address] [place], [address] MCH (RBC) [Entitic mass] 31.2 pg Normal 27.0-32.0 [facility] Comment on above: Performed By: #### L 100.0100 #### [facility] [address] [place], [address] MCHC (RBC) [Mass/Vol] 34.8 g/dL Normal 32-36 [facility] Comment on above: Performed By: #### L 100.0100 #### [facility] [address] [place], [address] MCV (RBC) [Entitic vol] 89.7 fL Normal 80-94 [facility] Comment on above: Performed By: #### L 100.0100 #### [facility] [address] [place], [address] Monocytes/100 WBC (Bld) 10.1 % High 0-10 [facility] Comment on above: Performed By: #### L 100.0100 #### [facility] [address] [place], [address] Neutrophils/100 WBC (Bld) 42.2 % Low 47-70 [facility] Comment on above: Performed By: #### L 100.0100 #### [facility] [address] [place], [address] NRBC, FLAGGED 0 % Normal 0-5 [facility] Comment on above: Performed By: #### L 100.0100 #### [facility] [address] [place], [address] Platelet mean volume (Bld) [Entitic vol] 10.5 fL Normal 6.2-12.0 [facility] Comment on above: Performed By: #### L 100.0100 #### [facility] [address] [place], [address] Platelets (Bld) [#/Vol] 189 10*3/uL Normal 150-450 [facility] Comment on above: Performed By: #### L 100.0100 #### [facility] [address] [place], [address] RBC (Bld) [#/Vol] 5.13 M/mm3 Normal 4.6-6.2 [facility] Comment on above: Performed By: #### L 100.0100 #### [facility] [address] [place], [address] RDW SD 40.4 fl Normal 35.1-43.9 [facility] Comment on above: Performed By: #### L 100.0100 #### [facility] [address] [place], [address] WBC (Bld) [#/Vol] 5.6 10*3/uL Normal 4.4-11.0 [facility] Comment on above: Performed By: #### L 100.0100 #### [facility] [address] [place], [address] Comprehensive Metabolic Prof ilon 01-02-2020 Albumin [Mass/Vol] 4.5 g/dL Normal 3.2-5.0 [facility] Comment on above: Performed By: #### L 500.4050, L501.2400, L501.2450, L501.4700 #### [facility] [address] [place], [address] Albumin/Globulin [Mass ratio] 1.3 {ratio} Normal 0.9-2.4 [facility] Comment on above: Performed By: #### L 500.4050, L501.2400, L501.2450, L501.4700 #### [facility] [address] [place], [address] ALK P 90 U/L Normal 45-117 [facility] Comment on above: Performed By: #### L 500.4050, L501.2400, L501.2450, L501.4700 #### [facility] [address] [place], [address] ALT [Catalytic activity/Vol] 19 U/L Normal 16-61 [facility] Comment on above: Performed By: #### L 500.4050, L501.2400, L501.2450, L501.4700 #### [facility] [address] [place], [address] AST [Catalytic activity/Vol] 17 U/L Normal 15-37 [facility] Comment on above: Performed By: #### L 500.4050, L501.2400, L501.2450, L501.4700 #### [facility] [address] [place], [address] Bilirubin [Mass/Vol] 2.80 mg/dL High 0.20-1.00 [facility] Comment on above: Result Comment: For patients on eltrombopag therapy, use of Dimension [place] TBIL is not recommended. Performed By: #### L 500.4050, L501.2400, L501.2450, L501.4700 #### [facility] [address] [place], [address] Calcium [Mass/Vol] 9.0 mg/dL Normal 8.5-10.1 [facility] Comment on above: Performed By: #### L 500.4050, L501.2400, L501.2450, L501.4700 #### [facility] [address] [place], [address] Chloride [Moles/Vol] 106 mmol/L Normal 98-107 [facility] Comment on above: Performed By: #### L 500.4050, L501.2400, L501.2450, L501.4700 #### [facility] [address] [place], [address] CO2 [Moles/Vol] 29.0 mmol/L Normal 21.0-32.0 [facility] Comment on above: Performed By: #### L 500.4050, L501.2400, L501.2450, L501.4700 #### [facility] [address] [place], [address] Creatinine [Mass/Vol] 0.93 mg/dL Normal 0.70-1.30 [facility] Comment on above: Result Comment: The validity of the calculated GFR AND GFRAA in patients over 70 years has not been determined. Clinical correlation is essential. Performed By: #### L 500.4050, L501.2400, L501.2450, L501.4700 #### [facility] [address] [place], [address] EST GFR - AA 124 mL/min Normal >60 [facility] Comment on above: Result Comment: Afri can Egyptian GFR Calc Performed By: #### L 500.4050, L501.2400, L501.2450, L501.4700 #### [facility] [address] [place], [address] GAP 5 Normal 5-15 [facility] Comment on above: Performed By: #### L 500.4050, L501.2400, L501.2450, L501.4700 #### [facility] [address] [place], [address] GFR/1.73 sq M predicted among non-blacks MDRD (S/P/Bld) [Vol rate/Area] 103 mL/min/{1.73_m2} Normal >60 [facility] Comment on above: Result Comment: Non- GFR Calc Performed By: #### L 500.4050, L501.2400, L501.2450, L501.4700 #### [facility] [address] [place], [address] Globulin (S) [Mass/Vol] 3.4 g/dL Normal 2.2-4.2 [facility] Comment on above: Performed By: #### L 500.4050, L501.2400, L501.2450, L501.4700 #### [facility] [address] [place], [address] Glucose [Mass/Vol] 86 mg/dL Normal 74-106 [facility] Comment on above: Result Comment: Oscar hilliard note revised GLUCOSE reference range effective 2017. Performed By: #### L 500.4050, L501.2400, L501.2450, L501.4700 #### [facility] [address] [place], [address] Potassium [Moles/Vol] 3.9 mmol/L Normal 3.5-5.1 [facility] Comment on above: Performed By: #### L 500.4050, L501.2400, L501.2450, L501.4700 #### [facility] [address] [place], [address] Sodium [Moles/Vol] 140 mmol/L Normal 136-145 [facility] Comment on above: Performed By: #### L 500.4050, L501.2400, L501.2450, L501.4700 #### [facility] [address] [place], [address] T PROT 7.9 g/dL Normal 6.4-8.2 [facility] Comment on above: Performed By: #### L 500.4050, L501.2400, L501.2450, L501.4700 #### [facility] [address] [place], [address] Urea nitrogen [Mass/Vol] 23 mg/dL High 7-18 [facility] Comment on above: Performed By: #### L 500.4050, L501.2400, L501.2450, L501.4700 #### [facility] [address] [place], [address] Urea nitrogen [Mass/Vol] 24.8 RATIO High 10-20 [facility] Comment on above: Performed By: #### L 500.4050, L501.2400, L501.2450, L501.4700 #### [facility] [address] [place], [address] Lipaseon 01-02-2020 Lipase [Catalytic activity/Vol] 142 U/L Normal 73-393 [facility] Comment on above: Performed By: #### L 500.4050, L501.2400, L501.2450, L501.4700 #### [facility] [address] [place], [address] PROGRESSon 03-29-2019 PROGRESS HNO ID: [id number] Author: Theo Perales Service: ? Author Type: Physician Type: Progress Notes Filed: 03/29/2019 7:30 AM Note Text: Follow up podiatric office visit for: Chief Complaint: This 28 year old who presents for follow up:matrixectomy of right hallux lateral nail border. Patient presents to clinic for follow-up matrixectomy of right hallux lateral nail border. Patient has no pain although he has experienced numbness to his 2nd toe for no apparent reason. He has no pain. He denies any drainage. He has no other complaints. PAIN EVALUATION 03/28/2019 1438 Pain Level: 2 Pain Location: Other: See Comment R 2nd toe Description: Numbness Duration Amount of Time: 2 Duration Units: Weeks Frequency: Intermittent Intervention: Relaxation No results found for: HBA1C PCP: No primary care provider on file. No past medical history on file. No current outpatient medications on file. No current facility-administered medications for this visit. ALLERGIES No Known Allergies No past surgical history on file. Physical Exam: Constitutional: Pt is a well developed 28 year old male who is alert, oriented, cooperative and in no apparent distress. OBJECTIVE: NVSI unchanged from previous visit. Dermatological: Right hallux lateral nail border appears healed without infection. Webspaces clean and dry 1-4 right. Skin appears well hydrated and supple. good color, texture, turgor. No open lesions present. No callosities present. Musculoskeletal/Ortho paedic: Patient has no pain to palpation of right hallux No pain to right 2nd toe ASSESSMENT: (S91.109A) Open wound of toe, initial encounter (primary encounter diagnosis) PLAN: 1. History and physical examination completed today. 2. Patient is s/p matrixectomy of right hallux lateral nail border. Patient appears to be doing very well without complications. Continue with local wound care until toe is completely healed. 3. Discussed numbness of 2nd toe. He has no pain. He is going to monitor. 4. F/u prn Theo Perales DPM Normal [facility] CNOVnina 03-28-2019 CNOV Office Visit (PODIWS ) UVALDO SIMMONS ([id number]) 1990 M Date Time Provider Department 03/28/19 2:45 PM THEO PERALES PODIWS During your visit today, we recorded the following information about you: Bridgett Peña Ma 03/29/2019 7:30 AM Signed AMB ROOMING INTAKE FLOWSHEET DATA Pain Pain Level: 2 Pain Location: Other: See Comment(R 2nd toe) Description: Numbness Duration Amount of Time: 2 Duration Units: Weeks Frequency: Intermittent Intervention: Relaxation Patient presents with: Established Patient: 2 weeks s/p partial matrixectomy R lateral hallux Patient states R 2nd toe goes numb when rubbing R hallux. No redness or swelling present. Theo Perales DPM 03/29/2019 7:30 AM Signed Follow up podiatric office visit for: Chief Complaint: This 28 year old who presents for follow up:matrixectomy of right hallux lateral nail border. Patient presents to clinic for follow-up matrixectomy of right hallux lateral nail border. Patient has no pain although he has experienced numbness to his 2nd toe for no apparent reason. He has no pain. He denies any drainage. He has no other complaints. PAIN EVALUATION 03/28/2019 1438 Pain Level: 2 Pain Location: Other: See Comment R 2nd toe Description: Numbness Duration Amount of Time: 2 Duration Units: Weeks Frequency: Intermittent Intervention: Relaxation No results found for: HBA1C PCP: No primary care provider on file. No past medical history on file. No current outpatient medications on file. No current facility-administered medications for this visit. ALLERGIES No Known Allergies No past surgical history on file. Physical Exam: Constitutional: Pt is a well developed 28 year old male who is alert, oriented, cooperative and in no apparent distress. OBJECTIVE: NVSI unchanged from previous visit. Dermatological: Right hallux lateral nail border appears healed without infection. Webspaces clean and dry 1-4 right. Skin appears well hydrated and supple. good color, texture, turgor. No open lesions present. No callosities present. Musculoskeletal/Ortho paedic: Patient has no pain to palpation of right hallux No pain to right 2nd toe ASSESSMENT: (S91.109A) Open wound of toe, initial encounter (primary encounter diagnosis) PLAN: 1. History and physical examination completed today. 2. Patient is s/p matrixectomy of right hallux lateral nail border. Patient appears to be doing very well without complications. Continue with local wound care until toe is completely healed. 3. Discussed numbness of 2nd toe. He has no pain. He is going to monitor. 4. F/u prn Theo Perales DPM Referring Provider: THEO PERALES [[id number]] Allergies As of Date: 03/28/2019 (No Known Allergies) Date Reviewed: 03/28/2019 Reviewed by: Bridgett Peña Ma - Fully Assessed Reason for Visit: Established Patient [175] Cmt: 2 weeks s/p partial matrixectomy R lateral hallux Primary Visit Diagnosis:Open wound of toe, initial encounter [S91.109A] Problem List As Of Date: 03/28/2019 (None) Disposition: Return if symptoms worsen or fail to improve. Follow-up and Disposition History Recorded Encounter Status:Closed by THEO PERALES DPM on 03/29/[address] [facility] PROGRESSon 03-28-2019 PROGRESS HNO ID: [id number] Author: Bridgett Peña Ma Service: ? Author Type: ? Type: Progress Notes Filed: 03/29/2019 7:30 AM Note Text: AMB ROOMING INTAKE FLOWSHEET DATA Pain Pain Level: 2 Pain Location: Other: See Comment(R 2nd toe) Description: Numbness Duration Amount of Time: 2 Duration Units: Weeks Frequency: Intermittent Intervention: Relaxation Patient presents with: Established Patient: 2 weeks s/p partial matrixectomy R lateral hallux Patient states R 2nd toe goes numb when rubbing R hallux. No redness or swelling present. Normal [facility] CNOVon 03-06-2019 CNOV Office Visit (PODIWS ) UVALDO SIMMONS ([id number]) 1990 M Date Time Provider Department 03/06/19 4:00 PM THEO PERALES PODIWS During your visit today, we recorded the following information about you: Ericka Celaya RN 03/08/2019 12:50 PM Signed AMB ROOMING INTAKE FLOWSHEET DATA Risk Screening Do you have concerns about personal safety or safety in the home?: No Pain Pain Level: 3 Pain Location: Toe Description: Sharp Duration Amount of Time: 2 Duration Units: Years Frequency: Intermittent Intervention: Reposition, Relaxation Patient presents with: New Patient: ingrown toenail, R hallux Patient states toe has been a problem for several years. He had partial nail avulsion of R lateral hallux 3 years ago while in [place]. He states nail has been bothering him again the past 2 years. He usually tries to remove ingrown portion himself. Denies drainage or redness. Theo Perales DPM 03/08/2019 12:50 PM Signed Initial Podiatric Office Visit: Chief Complaint: This 28 year old male who presents with chief complaint:ingrowing toenail of right hallux lateral nail border HPI Patient presents to clinic for evaluation of right hallux. Patient has chronic pain due to ingrowing toenail of lateral border of right hallux. He had an avulsion performed 3 years ago of the lateral border but still gets pain. He treats himself with self debridement. He currently has pain that is 3/10. He denies any redness or drainage. PAIN EVALUATION 03/06/2019 1555 Pain Level: 3 Pain Location: Toe Description: Sharp Duration Amount of Time: 2 Duration Units: Years Frequency: Intermittent Intervention: Reposition;Relaxation No results found for: HBA1C PCP: No primary care provider on file. History reviewed. No pertinent past medical history. No current outpatient medications on file. No current facility-administered medications for this visit. ALLERGIES No Known Allergies History reviewed. No pertinent surgical history. History reviewed. No pertinent family history. Social History Tobacco Use - Smoking status: Never Smoker - Smokeless tobacco: Never Used Substance Use Topics - Alcohol use: Not on file - Drug use: Not on file REVIEW OF SYSTEMS GENERAL: Negative for Malaise, significant weight loss, fever RESPIRATORY: Negative for cough, wheezing and shortness of breath CARDIOVASCULAR: Negative for chest pain, leg swelling and palpitations GI: Negative for abdominal discomfort, blood in stools or black stools and change in bowel habits : Negative for dysuria, frequency and incontinence MUSCULOSKELETAL: Negative for joint pain or swelling, back pain, and muscle pain. SKIN: positive ingrowing toenail of right hallux lateral nail border HEMATOLOGY/LYMPHOLOGY Negative for prolonged bleeding, bruising easily, and swollen nodes. ENDOCRINE: Negative for cold or heat intolerance, polyuria, polydipsia and goiter. NEURO: negative Physical Exam: Constitutional: Pt is a well developed 28 year old male who is alert, oriented and cooperative Eyes: Following during examination. No redness or drainage. Respiratory: RR normal and nonlabored. Even breathing. No evidence of distress or shortness of breath. Psychology: Patient is engaged during conversation. Normal affect and mood. Does not appear depressed or anxious during encounter. Vascular: Dorsalis pedis and posterior tibial pulses palpable as right Capillary Fill time < 5 seconds to digits 1-5 right Skin temperature warm to warm proximal to distal right Hair growth present to digits Neurological: intact light touch/epicritic sensation intact protective sensation no significant neurological deficits Dermatological: Right hallux lateral nail border is ingrown with pain. No redness or signs of infection. Webspaces clean and dry 1-4 right. Skin appears well hydrated and supple. good color, texture, turgor. No open lesions present. No callosities present. Musculoskeletal/Ortho paedic: Patient has pain to palpation of right hallux lateral nail border Radiographs: n/a ASSESSMENT: PLAN: 1. History and physical examination performed. 2. Discussed ingrowing toenail of right hallux lateral nail border. There is pain present. There are no signs of infection. He had avulsion performed 3 years ago only to develop recurrence. He wishes to pursue matrixectomy Discussed risks of toenail procedure not limited to infection, pain, swelling, bleeding, painful scarring, recurrence, need for revised procedure. Patient consented to proceed. Patient was properly identified by name and procedure. The right hallux was then injected with 3 cc of 2% lidocaine plain. The toe was then prepped and draped in the usual aseptic technique. A digital tournicot was applied to the toe. The lateral border was then freed and removed. Careful inspection was performed to assure no remaining spicule present. 3 applications of phenol were then administered x 30 seconds each followed by alcohol rinse. Sterile dressing was then applied consisting of amerigel, guaze, bello and coban. Tournicot was removed and hyperemic response was noted. Patient tolerated well. Patient will f/u in 2 weeks. Theo Perales DPM Podiatry [address] [facility] [address] Dept: [phone] Dept Ericka Anne RN 03/06/2019 4:22 PM Signed Post-Op Nail Instructions Minimize activity until the anesthesia wears off (about 2-8 hours). Increase activity to tolerance Remove bandage tomorrow Soak affected toe/foot in epsom salts for 15-20 minutes twice daily After soaking, apply antibiotic ointment (OTC Neosporin) to affected toe and re bandage OTC Ibuprofen if having pain, provided you have no allergies or intolerance to NSAIDS Mild drainage, redness, and blood is expected, but if you expeirence severe pain, increase in drainage, swelling, or red streaking please contact our office immediately Feel free to contact office as well if you have any questions/concerns [phone], ask for Podiatry Nurse Ericka Celaya RN 03/08/2019 12:50 PM Signed UNIVERSAL PROTOCOL / SAFETY CHECKLIST Procedure to be performed: partial matrixectomy, R lateral hallux Sign in Communication: Completed Time Out: Team Confirms the Correct Patient, Correct Procedure, Correct Site and Site Marking, Correct Position (if applicable), Prep and Dry Time (if applicable). Time: 4:25 am Affirmation of Time Out: YES Sign Out Discussion: Completed Ericka Anne RN Referring Provider: SELF [[id number]] Allergies As of Date: 03/06/2019 (No Known Allergies) Date Reviewed: 03/06/2019 Reviewed by: Ericka Anne RN - Fully Assessed Reason for Visit: New Patient [172] Cmt: ingrown toenail, R hallux Primary Visit Diagnosis:Ingrown toenail [L60.0] Problem List As Of Date: 03/06/2019 (None) Other instructions from your clinician: Post-Op Nail Instructions Minimize activity until the anesthesia wears off (about 2-8 hours). Increase activity to tolerance Remove bandage tomorrow Soak affected toe/foot in epsom salts for 15-20 minutes twice daily After soaking, apply antibiotic ointment (OTC Neosporin) to affected toe and re bandage OTC Ibuprofen if having pain, provided you have no allergies or intolerance to NSAIDS Mild drainage, redness, and blood is expected, but if you expeirence severe pain, increase in drainage, swelling, or red streaking please contact our office immediately Feel free to contact office as well if you have any questions/concerns [phone], ask for Podiatry Nurse Disposition: Return in about 2 weeks (around 03/20/2019) for post partial matrixectomy, R lateral hallux. Follow-up and Disposition History Recorded Encounter Status:Closed by THEO PERALES DPM on 03/08/19 [facility] PROGRESSon 03-06-2019 PROGRESS HNO ID: [id number] Author: Ericka Celaya RN Service: ? Author Type: ? Type: Progress Notes Filed: 03/08/2019 12:50 PM Note Text: UNIVERSAL PROTOCOL / SAFETY CHECKLIST Procedure to be performed: partial matrixectomy, R lateral hallux Sign in Communication: Completed Time Out: Team Confirms the Correct Patient, Correct Procedure, Correct Site and Site Marking, Correct Position (if applicable), Prep and Dry Time (if applicable). Time: 4:25 am Affirmation of Time Out: YES Sign Out Discussion: Completed Ericka Anne RN Normal [facility] PROGRESS HNO ID: [id number] Author: Theo Perales Service: ? Author Type: Physician Type: Progress Notes Filed: 03/08/2019 12:50 PM Note Text: Initial Podiatric Office Visit: Chief Complaint: This 28 year old male who presents with chief complaint:ingrowing toenail of right hallux lateral nail border HPI Patient presents to clinic for evaluation of right hallux. Patient has chronic pain due to ingrowing toenail of lateral border of right hallux. He had an avulsion performed 3 years ago of the lateral border but still gets pain. He treats himself with self debridement. He currently has pain that is 3/10. He denies any redness or drainage. PAIN EVALUATION 03/06/2019 1555 Pain Level: 3 Pain Location: Toe Description: Sharp Duration Amount of Time: 2 Duration Units: Years Frequency: Intermittent Intervention: Reposition;Relaxation No results found for: HBA1C PCP: No primary care provider on file. History reviewed. No pertinent past medical history. No current outpatient medications on file. No current facility-administered medications for this visit. ALLERGIES No Known Allergies History reviewed. No pertinent surgical history. History reviewed. No pertinent family history. Social History Tobacco Use - Smoking status: Never Smoker - Smokeless tobacco: Never Used Substance Use Topics - Alcohol use: Not on file - Drug use: Not on file REVIEW OF SYSTEMS GENERAL: Negative for Malaise, significant weight loss, fever RESPIRATORY: Negative for cough, wheezing and shortness of breath CARDIOVASCULAR: Negative for chest pain, leg swelling and palpitations GI: Negative for abdominal discomfort, blood in stools or black stools and change in bowel habits : Negative for dysuria, frequency and incontinence MUSCULOSKELETAL: Negative for joint pain or swelling, back pain, and muscle pain. SKIN: positive ingrowing toenail of right hallux lateral nail border HEMATOLOGY/LYMPHOLOGY Negative for prolonged bleeding, bruising easily, and swollen nodes. ENDOCRINE: Negative for cold or heat intolerance, polyuria, polydipsia and goiter. NEURO: negative Physical Exam: Constitutional: Pt is a well developed 28 year old male who is alert, oriented and cooperative Eyes: Following during examination. No redness or drainage. Respiratory: RR normal and nonlabored. Even breathing. No evidence of distress or shortness of breath. Psychology: Patient is engaged during conversation. Normal affect and mood. Does not appear depressed or anxious during encounter. Vascular: Dorsalis pedis and posterior tibial pulses palpable as right Capillary Fill time < 5 seconds to digits 1-5 right Skin temperature warm to warm proximal to distal right Hair growth present to digits Neurological: intact light touch/epicritic sensation intact protective sensation no significant neurological deficits Dermatological: Right hallux lateral nail border is ingrown with pain. No redness or signs of infection. Webspaces clean and dry 1-4 right. Skin appears well hydrated and supple. good color, texture, turgor. No open lesions present. No callosities present. Musculoskeletal/Ortho paedic: Patient has pain to palpation of right hallux lateral nail border Radiographs: n/a ASSESSMENT: PLAN: 1. History and physical examination performed. 2. Discussed ingrowing toenail of right hallux lateral nail border. There is pain present. There are no signs of infection. He had avulsion performed 3 years ago only to develop recurrence. He wishes to pursue matrixectomy Discussed risks of toenail procedure not limited to infection, pain, swelling, bleeding, painful scarring, recurrence, need for revised procedure. Patient consented to proceed. Patient was properly identified by name and procedure. The right hallux was then injected with 3 cc of 2% lidocaine plain. The toe was then prepped and draped in the usual aseptic technique. A digital tournicot was applied to the toe. The lateral border was then freed and removed. Careful inspection was performed to assure no remaining spicule present. 3 applications of phenol were then administered x 30 seconds each followed by alcohol rinse. Sterile dressing was then applied consisting of amerigel, guaze, bello and coban. Tournicot was removed and hyperemic response was noted. Patient tolerated well. Patient will f/u in 2 weeks. Theo Perales DPM Podiatry [address] [facility] [address] Dept: [phone] [facility] PROGRESS HNO ID: [id number] Author: Ericka Celaya RN Service: ? Author Type: ? Type: Progress Notes Filed: 03/08/2019 12:50 PM Note Text: AMB ROOMING INTAKE FLOWSHEET DATA Risk Screening Do you have concerns about personal safety or safety in the home?: No Pain Pain Level: 3 Pain Location: Toe Description: Sharp Duration Amount of Time: 2 Duration Units: Years Frequency: Intermittent Intervention: Reposition, Relaxation Patient presents with: New Patient: ingrown toenail, R hallux Patient states toe has been a problem for several years. He had partial nail avulsion of R lateral hallux 3 years ago while in [place]. He states nail has been bothering him again the past 2 years. He usually tries to remove ingrown portion himself. Denies drainage or redness. Normal [facility] Summary Purpose Family History No Family History Records FoundNo Family History Records Found Advance Directives No Advanced Directives Records FoundNo Advanced Directives Records Found Additional Source Comments (unrecognized sect ion and content) No Status Records FoundNo Status Records Found INFORMATION SOURCE (unrecogn ized section and content) DATE CREATED AUTHOR 03/30/[address] [facility] DATE CREATED AUTHOR AUTHOR'S ORGANIZ ATION 01/10/2020 [facility] FOR RECORDS PERTAINING TO PATIENTS WHO ARE OR HAVE BEEN ENROLLED IN A CHEMICAL DEPENDENCY/SUBSTANCEABUSE PROGRAM, SOME INFORMATION MAY BE OMITTED. This clinical summary was aggregated from multiple sources. Caution should be exercised in using it in the provision of clinical care. This summary normalizes information from multiple sources, and as a consequence, information in this document may materially change the coding, format and clinical context of patient data. In addition, data may be omitted in some cases. CLINICAL DECISIONS SHOULD BE BASED ON THE PRIMARY CLINICAL RECORDS. [employer] provides no warranty or guarantee of the accuracy or completeness of information in this document.
[2025-03-13 12:21] LABS: Hematocrit 48.3 % (40-54); Hemoglobin 17.0 g/dL (13.0-16.5); Mean Corp Hgb Conc 35.2 g/dL (32-36); Mean Corpuscular Volume 92.4 fL (80-94); Mean Platelet Vol. 10.6 fl (6.2-12.0); Platelet Count 221 K/mm3 (150-450); RBC Distribution Width CV 12.6 % (11.6-14.6); RBC Distribution Width SD 43.1 fl (35.1-43.9); Red Blood Count 5.23 M/mm3 (4.6-6.2); White Blood Count 4.5 K/mm3 (4.4-11.0)
[2025-03-13 12:50] LABS: AST(SGOT) 21 U/L (<=37); Alanine Aminotransfer ALT/SGPT 16 U/L (<=46); Albumin, Serum 4.8 g/dL (3.5-5.0); Alkaline Phosphatase 67 U/L (40-129); Anion Gap 10 (5-15); BUN 16 mg/dL (4-19); BUN/Creat Ratio 17.4 RATIO (10-20); Calcium,Total 9.8 mg/dL (7.6-11.0); Carbon Dioxide 27.0 mmol/L (21.0-32.0); Chloride 99 mmol/L (98-108); Cholesterol 171 mg/dL (<=200); Globulin 3.0 g/dL (2.2-4.2); Glucose 92 mg/dL (70-99); Low Density Lipoprotein Calc. 97 mg/dL; Potassium 4.2 mmol/L (3.3-5.1); Triglycerides 77 mg/dL; Very Low Density Lipoprotein 15 mg/dL (5-40); cholesterol:hdl ratio screen 2.87
== END | disposition home or self-care (01) ==
LOC: MFPLAB 09:49
PROVIDERS: PCP Family Medicine; Visit Provider Family Medicine
DX: R03.0 Elevated blood-pressure reading, without diagnosis of hypertension (principal)
CPT/HCPCS: 36415; 80053; 80061; 84439; 84443; 85027